=== PATIENT | female | born 1995 | race Caucasian/White ===

== ENCOUNTER 2017-04-17 19:25 | Observation (INO) | payer BC ==
--- NOTE | 2017-04-17 20:32 | CPEKG ---
Heart Rate: 126 RR Interval: 476 P-R Interval: 144 QRSD Interval: 68 QT Interval: 296 QTC Interval: 429 P [place]: 76 QRS [place]: 78 T Wave [place]: 20 EKG Severity - OTHERWISE NORMAL ECG - EKG Impression: SINUS TACHYCARDIA Electronically Signed By: Bernardo Tabares 17-Apr-2017 21:08:23
[2017-04-17] MEDS ORDERED: NS 1,800 ML IV ONE (20:58)
--- NOTE | 2017-04-17 21:09 | EDPHY ---
H & P Stated Complaint: HAS UTI BEING TREATED, NOW FEVER CHEST TIGHT WITH DEEP BREATH Source: Patient, Family Exam Limitations: No limitations - Personal History LMP (Females 10-55): 8-14 Days Ago Current Tetanus/Diphtheria Vaccine: Yes Current Tetanus Diphtheria and Acellular Pertussis (TDAP): Yes - Medical/Surgical History Hx Asthma: No Hx Chronic Respiratory Disease: No Hx Diabetes: No Hx Cardiac Disease: No Hx Renal Disease: No Hx Cirrhosis: No Hx Alcoholism: No Hx HIV/AIDS: No Hx Splenectomy or Spleen Trauma: No Other PMH: DENIES - Social History Smoking Status: Current some day smoker Time Seen by Provider: 04/17/17 20:41 HPI/ROS: HPI: This is a 22-year-old female who presents with Chief Complaint:HAS UTI BEING TREATED, NOW FEVER CHEST TIGHT WITH DEEP BREATH Location: Chest Quality: Tightness with deep breath Duration: Starting this afternoon Signs and Symptoms:+ fever, + chills, no abdominal pain, no palpitations, no diarrhea, no dysuria, no back pain, no vaginal bleeding Timing: Sudden Severity: Moderate Context: Patient complained of urinary symptoms 1 week ago; completed antibiotics. Returned yesterday to [facility] complaining of burning with urination and urinary frequency. Started on another antibiotic. Urine cultures are pending. Patient states that the urinary symptoms have decreased today. She return to [facility] again today now complaining of a fever of T- max a 101 F and chest tightness while taking a deep breath. Heart rate was noted to be in the 120-140s and not improved with 1 L normal saline. She was sent over to the emergency room for further evaluation. She does smoke cigarettes and is taking oral contraceptive pills. She denies any recent long distance travel. She denies IV drug use. She denies cough/wheezing/shortness of breath. Chest discomfort is not positional but is worsened when taking a deep breath. Modifying Factors: Antibiotic, IV fluids no relief Comment: ROS: Constitutional: + fever, no chills, no weight loss Eyes: No blurred vision Respiratory: No shortness of breath, no cough Cardiovascular: + chest pain Gastrointestinal: No nausea, no vomiting no diarrhea Genitourinary: No dysuria Extremities: No myalgias Neurologic: No weakness, no numbness Skin: No rashes Hematologic: No bruising, no bleeding MEDICAL/SURGICAL/SOCIAL HISTORY: Medical history: Generally healthy Surgical history: Denies Social history: College student CONSTITUTIONAL: Ill-appearing polite young adult female, awake and alert, no obvious distress HEENT: Atraumatic and normocephalic, PERRL, EOMI. Tympanic membranes clear. Oropharynx clear, no exudate and moist pink mucosa. Airway patent. No lymphadenopathy. No meningismus. Cardiovascular: Normal S1/S2, tachycardia, regular rhythm, without murmur rub or gallop. PULMONARY/CHEST: Symmetrical and nontender. Clear to auscultation bilaterally. Good air movement. No accessory muscle usage. ABDOMEN: Soft, nondistended, nontender, no rebound, no guarding, no peritoneal signs, no masses or organomegaly. No CVAT. EXTREMITIES: 2/2 pulses, no deformities, no clubbing, no cyanosis or edema. NEUROLOGICAL: no focal neuro deficits. GCS 15. SKIN: Warm and dry, no erythema. no rash. Good capillary refill. (Andreina Shaikh) Constitutional: Initial Vital Signs Temperature (C) 37.4 C 04/17/17 19:30 Heart Rate 140 H 04/17/17 19:30 Respiratory Rate 18 04/17/17 19:30 Blood Pressure 143/81 H 04/17/17 19:30 O2 Sat (%) 99 04/17/17 19:30 O2 Delivery Mode Room Air Allergies/Adverse Reactions: No Known Allergies Allergy (Unverified 04/17/17 19:33) Home Medications: Medication Instructions Recorded Levonorgestrel-Ethin Estradiol 1 each PO DAILY 04/17/17 [Levora-28 Tablet] Acetaminophen [Tylenol 325mg (*)] 650 mg PO Q4HRS PRN tab 04/18/17 Ciprofloxacin HCl 250 mg PO BID #10 tablet 04/18/17 Herbals/Supplements -Info Only 1 ea PO DAILY 04/18/17 Medical Decision Making ED Course/Re-evaluation: Sepsis since workup initiated Blood cultures, EKG, labs, IV fluids, IV medication, strep test, influenza and viral resp PCR ordered Chest x-ray obtained [facility] and per verbal report showed no pneumonia/effusion. CTA chest ordered to further evaluate for pulmonary embolism and pericardial effusion. Doubt pericarditis at this point but still in differential. Given normal saline 50 mL/kg and heart rate still remains in the 120s Leukocytosis noted; IV ceftriaxone given Called by radiologist and CTA chest shows no pulmonary embolism, pleural effusion, pericardial effusion, pneumonia. UA does not show signs of infection; high suspicion of pyelonephritis; renal US ordered due to recent contrast with CTA. need to rule out renal abscess 2125: ED decision to consult for admission: Spoke with hospitalist who kindly agrees to admit to provide further care. 0026: Called by radiologist advised that renal ultrasound does not show hydronephrosis, abscess, pyelonephritis. (Andreina Shaikh) I did not see this patient while she was in the emergency department. However her care was discussed with the PA while the patient was in the department. I agree with treatment plan and management (Bernardo Tabares) Differential Diagnosis: Adult fever including but not limited to viral syndromes including influenza, urinary tract infection, pneumonia and sepsis. (Andreina Shaikh) Other Provider: I spent a total of 42 minutes of critical care time in obtaining history, performing a physical exam, bedside monitoring of interventions, collecting and interpreting tests and discussion with consultants but not including time spent performing procedures. Dx: sepsis (Andreina Shaikh) - Data Points Laboratory Results: Laboratory Results 04/17/17 21:08 04/17/17 21:08 Medications Given: Discontinued Medications Sodium Chloride (Ns) 1,800 mls @ 3,600 mls/hr 30 ml/kg infuse over 30 min ( 1800 ml) IV EDNOW ONE PRN Reason: Protocol Stop: 04/17/17 21:27 Last Admin: 04/17/17 21:09 Dose: 1,800 mls Sodium Chloride (Ns) 1,000 mls @ 0 mls/hr IV EDNOW ONE; Wide Open PRN Reason: Protocol Stop: 04/17/17 21:52 Last Admin: 04/17/17 22:29 Dose: 1,000 mls Ceftriaxone Sodium/Dextrose (Rocephin 1 Gm (Premix)) 50 mls @ 100 mls/hr IV EDNOW ONE PRN Reason: Protocol Stop: 04/17/17 23:48 Last Admin: 04/17/17 23:24 Dose: 50 mls Sodium Chloride (Ns) 1,000 mls @ 250 mls/hr IV ONCE ONE Stop: 04/18/17 03:43 Last Admin: 04/18/17 01:41 Dose: 1,000 mls Departure - Departure Disposition: [facility] Inpatient Acute Clinical Impression: Sepsis Condition: Good
[2017-04-17 21:16] LABS: % IMMATURE GRANULYOCYTES 0.5 % (0.0-1.1); ABSOLUTE IMMATURE GRANULOCYTES 0.09 10^3/uL (0.00-0.10); ADD DIFF? NO; ADD MORPH? NO; ADD SCAN? NO; ATYPICAL LYMPHOCYTE FLAG 0 (0-99); FRAGMENT RBC FLAG 0 (0-99); HEMATOCRIT 47.7 % (38.0-47.0); HEMOGLOBIN 16.4 g/dL (12.6-16.3); LEFT SHIFT FLG 10 (0-99); LIPEMIA HEMOLYSIS FLAG 90 (0-99); MEAN CELL HEMOGLOBIN 30.3 pg (27.9-34.1); MEAN CELL HEMOGLOBIN CONCENTR. 34.4 g/dL (32.4-36.7); MEAN CELL VOLUME 88.2 fL (81.5-99.8); MEAN PLATELET VOLUME 9.3 fL (8.7-11.7); PLATELET CLUMPS FLAG 0 (0-99); PLATELET COUNT 234 10^3/uL (150-400); RED BLOOD CELL COUNT 5.41 10^6/uL (4.18-5.33); RED CELL DISTRIBUTION WIDTH 11.9 % (11.5-15.2)
[2017-04-17 21:21] LABS: COLOR COLORLESS; LEUKOCYTE ESTERASE,URINE NEGATIVE (NEGATIVE); NITRITE,URINE NEGATIVE (NEGATIVE)
[2017-04-17 21:27] LABS: ANION GAP 15 mEq/L (8-16); CALCIUM 9.9 mg/dL (8.5-10.4); CARBON DIOXIDE 21 mEq/l (22-31); CHLORIDE 102 mEq/L (97-110); CREATININE 0.8 mg/dL (0.6-1.0); GLOMERULAR FILTRATION RATE > 60; GLUCOSE 88 mg/dL (70-100); POTASSIUM 3.7 mEq/L (3.5-5.2); SODIUM 138 mEq/L (134-144)
[2017-04-17] MEDS ORDERED: IOPAMIDOL (ISOVUE 370) 100 ML BTL IV ONE (21:43)
[2017-04-17] MEDS ORDERED: NS 1,000 ML IV ONE ×2 (21:51→23:44)
[2017-04-17] MEDS ORDERED: ONDANSETRON DISINTEGRATING 4 MG TAB PO PRN (23:44)
[2017-04-17] MEDS ORDERED: ACETAMINOPHEN 325 MG TAB PO PRN (23:44)
[2017-04-17] MEDS ORDERED: ONDANSETRON 4 MG/2 ML VIAL IVP PRN (23:44)
[2017-04-17] MEDS ORDERED: oxyCODONE IR 5 MG TAB PO PRN (23:44)
--- NOTE | 2017-04-18 00:26 | PDGENHP ---
History and Physical - Chief Complaint Fatigue - History of Present Illness 22 yo F presents from clinic with fatigue and dyspnea. Patient initially presented to clinic 2 days ago with dysuria and frequency. She was prescribed 5 day course of antibiotics (she does not remember which). She says her dysuria and frequency improved but over the last 24 hours she developed fever, chills, fatigue, and dyspnea. Currently she has no complaints aside from mild fatigue. History Information - Allergies/Home Medication List Allergies/Adverse Reactions: No Known Allergies Allergy (Unverified 04/17/17 19:33) Home Medications: Levonorgestrel-Ethin Estradiol [Levora-28 Tablet] 1 each PO 04/17/17 [Last Taken Unknown] I have personally reviewed and updated: family history, medical history - Past Medical History no pertinent PMH - Family History Negative for: cancer - Social History Smoking Status: Current some day smoker Review of Systems Review of Systems: ROS: 10pt was reviewed & negative except for what was stated in HPI & below Physical Exam Physical Exam: Temp Pulse Resp BP Pulse Ox 37.2 C 108 H 16 112/57 L 98 04/17/17 22:30 04/17/17 23:30 04/17/17 23:30 04/17/17 23:30 04/17/17 23:30 Constitutional: no apparent distress, appears nourished Eyes: PERRL, EOMI Ears, Nose, Mouth, Throat: moist mucous membranes, no oral mucosal ulcers Cardiovascular: no murmur, rub, or gallop, tachycardia Respiratory: no respiratory distress, no rales or rhonchi Gastrointestinal: normoactive bowel sounds, soft, non-tender abdomen Genitourinary: no bladder tenderness, other (No CVAT) Skin: warm, normal color Musculoskeletal: full muscle strength, no muscle tenderness Neurologic: AAOx3, CN II-XII Intact Psychiatric: interacting appropriately, not anxious Lab Data & Imaging Review 04/17/17 21:08 04/17/17 21:08 WBC 18.66 10^3/uL (3.80-9.50) H 04/17/17 21:08 RBC 5.41 10^6/uL (4.18-5.33) H 04/17/17 21:08 Hgb 16.4 g/dL (12.6-16.3) H 04/17/17 21:08 Hct 47.7 % (38.0-47.0) H 04/17/17 21:08 MCV 88.2 fL (81.5-99.8) 04/17/17 21:08 MCH 30.3 pg (27.9-34.1) 04/17/17 21:08 MCHC 34.4 g/dL (32.4-36.7) 04/17/17 21:08 RDW 11.9 % (11.5-15.2) 04/17/17 21:08 Plt Count 234 10^3/uL (150-400) 04/17/17 21:08 MPV 9.3 fL (8.7-11.7) 04/17/17 21:08 Neut % (Auto) 90.3 % (39.3-74.2) H 04/17/17 21:08 Lymph % (Auto) 4.0 % (15.0-45.0) L 04/17/17 21:08 [place] % (Auto) 3.6 % (4.5-13.0) L 04/17/17 21:08 Eos % (Auto) 1.3 % (0.6-7.6) 04/17/17 21:08 Baso % (Auto) 0.3 % (0.3-1.7) 04/17/17 21:08 Nucleat RBC Rel Count 0.0 % (0.0-0.2) 04/17/17 21:08 Absolute Neuts (auto) 16.85 10^3/uL (1.70-6.50) H 04/17/17 21:08 Absolute Lymphs (auto) 0.74 10^3/uL (1.00-3.00) L 04/17/17 21:08 Absolute Monos (auto) 0.68 10^3/uL (0.30-0.80) 04/17/17 21:08 Absolute Eos (auto) 0.25 10^3/uL (0.03-0.40) 04/17/17 21:08 Absolute Basos (auto) 0.05 10^3/uL (0.02-0.10) 04/17/17 21:08 Absolute Nucleated RBC 0.00 10^3/uL (0-0.01) 04/17/17 21:08 Immature Gran % 0.5 % (0.0-1.1) 04/17/17 21:08 Immature Gran # 0.09 10^3/uL (0.00-0.10) 04/17/17 21:08 VBG Lactic Acid 0.7 mmol/L (0.7-2.1) 04/17/17 21:24 Sodium 138 mEq/L (134-144) 04/17/17 21:08 Potassium 3.7 mEq/L (3.5-5.2) 04/17/17 21:08 Chloride 102 mEq/L (97-110) 04/17/17 21:08 Carbon Dioxide 21 mEq/l (22-31) L 04/17/17 21:08 Anion Gap 15 mEq/L (8-16) 04/17/17 21:08 BUN 7 mg/dL (7-23) 04/17/17 21:08 Creatinine 0.8 mg/dL (0.6-1.0) 04/17/17 21:08 Estimated GFR > 60 04/17/17 21:08 Glucose 88 mg/dL (70-100) 04/17/17 21:08 Calcium 9.9 mg/dL (8.5-10.4) 04/17/17 21:08 Beta HCG, Qual NEGATIVE 04/17/17 21:53 Urine Color COLORLESS 04/17/17 21:08 Urine Appearance CLEAR 04/17/17 21:08 Urine pH 7.0 (5.0-7.5) 04/17/17 21:08 Ur Specific [place] 1.001 (1.002-1.030) L 04/17/17 21:08 Urine Protein NEGATIVE (NEGATIVE) 04/17/17 21:08 Urine Ketones NEGATIVE (NEGATIVE) 04/17/17 21:08 Urine Blood NEGATIVE (NEGATIVE) 04/17/17 21:08 Urine Nitrate NEGATIVE (NEGATIVE) 04/17/17 21:08 Urine Bilirubin NEGATIVE (NEGATIVE) 04/17/17 21:08 Urine Urobilinogen NEGATIVE EU (0.2-1.0) 04/17/17 21:08 Ur Leukocyte Esterase NEGATIVE (NEGATIVE) 04/17/17 21:08 Urine Glucose NEGATIVE (NEGATIVE) 04/17/17 21:08 Influenza A & B (PCR) NEGATIVE FOR FLU (NEGATIVE) 04/17/17 21:31 Imaging Review: CTPE without PE. Visualized and Interpreted EKG results: Yes EKG Interpretation: Positive for: normal sinsus rhythm (Sinus tach) Assessment & Plan Assessment: 22 yo F presents with sepsis 2/2 likely pyelonephritis. Plan: 1. Sepsis 2/2 presumed pyelonephritis - 2/4 SIRS criteria w/ WBC of 18 and HR of 140s on presentation. Suspect 2/2 pyelonephritis. She was likely given an antibiotic sufficient for cystitis but not pyelo. Her UA is clean on admission but this is likely due to ongoing antibiotic use. She denies other localizing symptoms. CTPE without pneumonia or PE. Lactate WNL, hemodynamically stable, flu negative. - S/p aggressive fluid resuscitation, will give additional liter noting continued tachycardia - CTX 1 g q24 h - Blood and urine cultures ordered - Will obtain renal U/S to rule out abscess FEN - Regular Ppx - Low risk Code - full Dispo - Admit to observation status
[2017-04-18 05:28] LABS: % IMMATURE GRANULYOCYTES 0.4 % (0.0-1.1); ABSOLUTE IMMATURE GRANULOCYTES 0.05 10^3/uL (0.00-0.10); ADD DIFF? NO; ADD MORPH? NO; ADD SCAN? NO; ATYPICAL LYMPHOCYTE FLAG 0 (0-99); FRAGMENT RBC FLAG 0 (0-99); HEMATOCRIT 40.8 % (38.0-47.0); HEMOGLOBIN 13.6 g/dL (12.6-16.3); LEFT SHIFT FLG 0 (0-99); LIPEMIA HEMOLYSIS FLAG 80 (0-99); MEAN CELL HEMOGLOBIN 29.9 pg (27.9-34.1); MEAN CELL HEMOGLOBIN CONCENTR. 33.3 g/dL (32.4-36.7); MEAN CELL VOLUME 89.7 fL (81.5-99.8); MEAN PLATELET VOLUME 8.8 fL (8.7-11.7); PLATELET CLUMPS FLAG 10 (0-99); PLATELET COUNT 195 10^3/uL (150-400); RED BLOOD CELL COUNT 4.55 10^6/uL (4.18-5.33); RED CELL DISTRIBUTION WIDTH 11.9 % (11.5-15.2)
[2017-04-18 06:06] LABS: ANION GAP 8 mEq/L (8-16); CALCIUM 7.8 mg/dL (8.5-10.4); CARBON DIOXIDE 19 mEq/l (22-31); CHLORIDE 111 mEq/L (97-110); CREATININE 0.7 mg/dL (0.6-1.0); GLOMERULAR FILTRATION RATE > 60; GLUCOSE 102 mg/dL (70-100); POTASSIUM 3.8 mEq/L (3.5-5.2); SODIUM 138 mEq/L (134-144)
[2017-04-18 09:12] VITALS: RESP 12; TEMP 98.8
--- NOTE | 2017-04-18 11:44 | ASMTCMCOM ---
CM Note CM Note Notes: Chart reviewed. Visited with patient in room to discussed discharge POC. Her parent (both physicians) live in [place] but are currently oot. Patient reports she feels much better today. She will likely dc independent without needs. She is already connected to [facility] at for her health care needs. CM available should needs arise. Date Signed: 04/18/2017 11:43 AM Electronically Signed By:Jeanie Simmons RN
[2017-04-18 12:03] VITALS: BP 112/66; PULSE 90; O2SAT 98
--- NOTE | 2017-04-18 19:02 | GDS ---
[f rep st] DISCHARGE SUMMARY DISCHARGE DIAGNOSES: 1. Pyelonephritis. 2. Tachycardia. 3. Sepsis. STUDIES AND PROCEDURES DONE: 1. CT angio of the chest. 2. Abdominal ultrasound. PHYSICAL EXAM: GENERAL: The patient is alert. VITAL SIGNS: Afebrile at 37.1, pulse is 90, respira tory rate is 12, blood pressure is 112/66. She is saturating 98% on room air. I have seen and evalu ated the patient on the day of discharge. HOSPITAL COURSE: The patient is a 22-year-old female, who presented to the emergency room with compl aints of fatigue and dyspnea. She was evaluated and diagnosed with: 1. Sepsis. This is in the setting of acute infection. This has completely resolved with fluid hydr ation. 2. Pyelonephritis. The patient had a urine culture done 2 days prior to admission which demonstrate d a pansensitive E coli. She had been initiated on oral ciprofloxacin in the outpatient setting. Ho daniel, has responded well to IV antibiotics of Rocephin and we will reinitiate her ciprofloxacin afte r the time of disposition. Ultrasound was performed with no notable abscess identified. Blood cultu res as well as a repeat urine culture are pending at the time of disposition. She will follow with h er physician at [facility]. 3. Tachycardia. This has resolved with hydration and supportive management. This is secondary to t he patient's acute infectious process. DISPOSITION: The patient will be discharged home independently. Followup will be at [facility]. DISCHARGE MEDICATIONS: Include ciprofloxacin 250 mg b.i.d. /[id number]/MODL
[2017-04-19] MEDS ORDERED: LEVONORGESTREL ETHIN ESTRADIOL PO SCH (09:00)
[2017-04-19] MEDS ORDERED: Herbals/Supplements -Info Only PO SCH (09:00)
== END 2017-04-18 12:45 | disposition home or self-care (01) ==
LOC: INTOOBSV 23:28 → F3E 04-18 00:40
PROVIDERS: ADMIT Student in an Organized Health Care Education/Training Program; ATTEND Student in an Organized Health Care Education/Training Program
DX: N12 Tubulo-interstitial nephritis, not specified as acute or chronic (principal); R00.0 Tachycardia, unspecified; A41.9 Sepsis, unspecified organism; F17.210 Nicotine dependence, cigarettes, uncomplicated
CPT/HCPCS: 71275; 76770; 93005; G0378; 96365; J0696; Q9967